=== PATIENT | female | born 1930 | race Caucasian/White ===

== ENCOUNTER 2018-07-18 19:45 | Emergency (ER) | payer MEDICARE, MEDICAID ==
[~2018-07-18] VITALS: Ht 144.8 cm; Wt 47.0 kg
[2018-07-18] MEDS ORDERED: LORazepam 2 mg/ml vial IM ONE (20:50)
[2018-07-18] MEDS ORDERED: LORazepam 2 mg/ml vial IV ONE ×2 (21:15→22:05)
[2018-07-18 21:54] LABS: CLARITY,URINE SLIGHTLY CLOUDY (Clear); COLOR,URINE YELLOW (Yellow); GLUCOSE, URINE NEGATIVE (Neg); KETONES,URINE NEGATIVE (Neg); LEUKOCYTE ESTERASE ,URINE SMALL (Neg); NITRITES, URINE NEGATIVE (Neg); OCCULT BLOOD,URINE NEGATIVE (Neg); PH,URINE 7.5 (4.8-8.0); PROTEIN,URINE NEGATIVE (Neg); UROBILINOGEN,URINE 0.2 E.U/dL (0.2-1.0)
[2018-07-18 21:57] LABS: UA COLLECTION TYPE STRAIGHT CATH
[2018-07-18 22:00] LABS: BACTERIA,URINE 4+ /HPF (Neg); RBC,URINE 0-2 /HPF (0-2); SQUAMOUS EPITHELIAL CELL,UR FEW /LPF (FEW)
[2018-07-18] MEDS ORDERED: MIDAZolam 5mg/ml 2ml vial IV ONE (22:20)
[2018-07-18] MEDS ORDERED: TRAM50TA2 PO (22:24)
[2018-07-19] MEDS ORDERED: CIPR-230 PO (00:13)
[2018-07-19 00:22] VITALS: BP 140/87
== END 2018-07-19 01:33 | disposition home or self-care (01) ==
LOC: ER 19:45
DX: S02.2XXA Fracture of nasal bones, initial encounter for closed fracture (principal); S00.03XA Contusion of scalp, initial encounter; I10 Essential (primary) hypertension; Z79.899 Other long term (current) drug therapy; W19.XXXA Unspecified fall, initial encounter; Y93.89 Activity, other specified; Y92.89 Other specified places as the place of occurrence of the external cause; Y99.8 Other external cause status
CPT/HCPCS: 70450; 70486; 72125; 81001; 87088; 96372; 96374; 96375; 99284; J2060; J2250; P9612; 87077